=== PATIENT | female | born 1930 | race Caucasian/White ===

== ENCOUNTER 2018-11-09 23:59 | Inpatient (IN) | payer MEDICARE, BC ==
[~2018-11-09] VITALS: Ht 165.1 cm; Wt 54.4 kg
[2018-11-10] VITALS (7 sets, daily range): BP systolic 118–146; BP diastolic 59–73
[2018-11-10] MEDS ORDERED: ASPIRIN EC81 M1 PO (00:16)
--- NOTE | 2018-11-10 00:55 | NUR ---
PT ASSISTED TO BEDSIDE COMMODE. PT DAUGHTER AT BEDSIDE.
--- NOTE | 2018-11-10 01:05 | NUR ---
PT ARRIVED FROM ER VIA STRETCHER ACCOMPANIED BY STAFF AND DAUGHTER. PT TAKEN TO ROOM 1210. SHE REFUSED TO TRANSFER TO BED, STATING SHE WAS GOING HOME. HER DAUGHTER INFORMED HER SHE HAD TO STAY UNTIL THE HEART DR SEEN HER TOMORROW. PT TRANSFERRED WITH SHEET LIFT AND MAX ASSIST SHE KEPT GRABBING ONTO THE RAILS OF THE STRETCHER. PT THEN ATTEMPTED MULTIPLE TIMES TO GET OUT OF BED, STICKING HER FEET THROUGH THE SIDE RAILS. SHE WAS YELLING AT HER DAUGHTER TO TAKE HER HOME, AND WHY ARE YOU DOING THIS TO ME, AND VARIOUS OTHER INSULTS. HER DAUGHTER SAID SHE HAD TO GO HOME TO CHECK ON HER KIDS. I TOLD HER TO GO AHEAD AND LEAVE. PT THEN STOPPED SCREAMING MUCH, BUT CONTINUED TO TRY TO GET OUT OF BED, PULLING OFF TELEMETRY. PULLING AT HER IV, ETC.
--- NOTE | 2018-11-10 01:40 | NUR ---
DR CONTRERAS CALLED WITH PTS CONDITION AT THIS TIME. NEW ORDER NOTED FOR CHRISTINA. AWAITING DELIVERY BY PERFORMANCE ENGINEER.
--- NOTE | 2018-11-10 02:31 | NUR ---
PT LYING IN BED AWAKE LOOKING AROUND HER ROOM. SHE IS NO LONGER ATTEMPTING TO GET OUT OF BED, OR YELLING.
--- NOTE | 2018-11-10 03:43 | NUR ---
PT ASSISTED TO THE BATHROOM. SHE AMBULATED WITH MAX ASSIST. TOILETED WITH SBA. SHE PULLED HER TELEMETRY UNIT OFF WHILE ON THE TOILET, AND REFUSED TO LET IT BE PLACED BACK ON. PT ASSISTED BACK TO BED AFTERWARDS.
--- NOTE | 2018-11-10 06:11 | NUR ---
PT RESTING IN BED WITH EYES OPEN. SHE STATED: " I THOUGHT YOU GUYS WERE KIDDING ABOUT A SHOT LAST NIGHT, BUT I THINK YOU SLIPPED UP ON ME AND GAVE ME ONE." PT DENIES NEEDS AT THIS TIME.
--- NOTE | 2018-11-10 08:00 | NUR ---
AWAKE AND ALERT.ORIENTED TO SELF. ATTEMPTS TO REORIENT WITHOUT SUCCESS. STATED I HAVE TO GO AND TAKE CARE OF BUSSINESS. PERSUADED TO STAY FOR AWHILE. LUNGS ARE CLEAR BILATERALLY, NO COUGH NOTED. SKIN IS INTACT WITHOUT REDNESS EXCEPT STAGE 2 TO RIGHT BUTTOCK AND BRUISING NOTED TO LEFT SHOULDER. SL TO LEFT WRIST AND LEFT AC PATENT WITHOUT REDNESS AT INSERTION SITE. BREAKFAST SERVED IN ROOM. ASSIST WITH MEAL PER STAFF. ATE ONLY HER EGGS.
[2018-11-10 08:15] LABS: HEMATOCRIT 45.4 % (36.0-48.0); MCH 29.7 pg (26.0-34.0); MCHC 35.2 g/dL (31.0-37.0); MCV 84.2 fL (80.0-100.0); MEAN PLATELET VOLUME 9.5 fL (7.4-10.4); PLATELET COUNT 409 10x3/uL (130-400); RBC 5.39 10x6/uL (4.00-5.40); RDW 14.2 % (11.5-14.5); WBC 9.1 10x3/uL (4.8-10.8)
[2018-11-10 08:25] LABS: ALBUMIN 2.8 g/dL (3.4-5.0); ALKALINE PHOSPHATASE 122 U/L (46-116); ALT (SGPT) 22 U/L (10-68); CALC OSMOLALITY 283 mosm/kg (275-300); CARBON DIOXIDE 26.6 mmol/L (21.0-32.0); CHLORIDE - SERUM 101 mmol/L (98-107); CREATININE - SERUM 0.6 mg/dL (0.6-1.3); GLUCOSE 77 mg/dL (74-106); MAGNESIUM - SERUM 1.9 mg/dL (1.8-2.4); POTASSIUM - SERUM 3.3 mmol/L (3.5-5.1); PROTEIN - SERUM 6.3 g/dL (6.4-8.2); SODIUM 140 mmol/L (136-145); UREA NITROGEN 28 mg/dL (7-18); eGFR NON AFRICAN AMERICAN > 90 mL/min (90-120)
[2018-11-10 08:39] LABS: APTT 30.6 SECONDS (22.8-39.4)
[2018-11-10 08:43] LABS: INR 1.19 (0.85-1.17); PROTIME 14.5 SECONDS (11.6-15.0)
[2018-11-10 08:53] LABS: CKMB 3.4 U/L (0.0-3.6); CREATINE KINASE 133 UL (21-215)
--- NOTE | 2018-11-10 10:00 | NUR ---
PERSUADED TO ALLOW TELEMETRY TO BE PLACED. DENIES NEEDS AT THIS TIME. BED ALARM IS ON AND WORKING.
--- NOTE | 2018-11-10 10:43 | NUR ---
LATE ENTRY PATIENT CONFUSED AND REFUSED TO KEEP ON SCDS AT THIS TIME
--- NOTE | 2018-11-10 14:23 | MORECARE ---
CASE MANAGEMENT DISCHARGE SUMMARY PATIENT: RAHEEL MELENDEZ UNIT: [id number] ADM DATE: 11/10/18 AGE: 88 : 32 SEX: F ROOM/BED: D.1210 AUTHOR: JOSÉ SANABRIA PHYSICIAN: REFERRING PHYSICIAN: MICHOACANO CONTRERAS MD DATE OF SERVICE: 11/10/18 Discharge Plan Patient Name: RAHEEL MELENDEZ Facility: [facility]:[place] : 1930 Planned Disposition: Anticipated Discharge Date: Discharge Date: Expected LOS: Initial Reviewer: [email or web address] Initial Review Date: 11/10/2018 Generated: 11/10/18 3:22 pm Comments DCP- Discharge Planning Updated by [email or web address]: Silva Cole on 11/10/18 1:[address] Patient Name: RAHEEL MELENDEZ Admission Status: ER Accout number: [id number] Admission Date: 11-10-2018 : 1930 Admission Diagnosis: Attending: MICHOACANO CONTRERAS Current LOS: 1 Anticipated DC Date: Planned Disposition: Primary Insurance: MEDICARE A & B Discharge Planning Comments: CM ATTEMPTED TO MEET WITH PATIENT, SHE HAS DEMENTIA AND IS UNABLE TO ANSWER QUESTIONS APPROPRIATLEY. FAMILY WILL BE BACK LATER TODAY OR TOMORROW AND CM WILL MEET WITH THEM THEN. CM WILL FOLLOW AND ASSIST NEEDED WITH DC PLANNING/NEEDS. Student Outreach Coordinator: Silva Cole Patient Name: RAHEEL MELENDEZ Page [phone] at 1423 All edits/amendments must be made on the electronic document DICTATION DATE: 11/10/18 142 C ARCHITECT: SALMA 11/10/18 1422 RPT#: [id number] DC DATE: STATUS: ADM IN [facility] [address] [place] [address] END OF REPORT
[2018-11-10 14:51] LABS: CKMB 2.3 U/L (0.0-3.6); CREATINE KINASE 103 UL (21-215)
[2018-11-10 14:55] LABS: TROPONIN-I 0.244 ng/mL (0.000-0.060)
--- NOTE | 2018-11-10 15:49 | NUR ---
Noted stage 2 pressure injury on right buttocks measuring 1cm x 3cm. Recommendations: -calmoseptine cream -turn/reposition q 2 hours Wound care will continue monitoring.
--- NOTE | 2018-11-10 15:50 | NUR ---
REPOSITIONED IN BED FOR SAFETY. SCREAMED DURING THE PROCESS. CALM ONCE COMPLETED. DENIES NEEDS.
[2018-11-10 18:32] LABS: APPEARANCE CLEAR (CLEAR); BILIRUBIN NEGATIVE (NEGATIVE); COLOR YELLOW (YELLOW); GLUCOSE NEGATIVE (NEGATIVE); KETONE NEGATIVE (NEGATIVE); NITRITE POSITIVE (NEGATIVE); PROTEIN TRACE mg/dL (NEGATIVE); UROBILINOGEN NORMAL (NORMAL)
[2018-11-10 18:33] LABS: BACTERIA MANY /hpf (NONE SEEN); EPITHELIAL CELLS 0-5 /hpf (0-5); RED CELLS - URINE 0-5 /hpf (0-5)
[2018-11-10 20:50] LABS: CKMB 2.2 U/L (0.0-3.6); CREATINE KINASE 103 UL (21-215)
[2018-11-10 21:44] LABS: TROPONIN-I 0.216 ng/mL (0.000-0.060)
[2018-11-11] VITALS: BP 166/71
--- NOTE | 2018-11-11 02:36 | NUR ---
ASSISTED PT TO BATHROOM AND BACK TO BED.
[2018-11-11 08:03] LABS: CHOL - HDL RATIO 3.8 ratio (2.3-4.1); LDL-HDL RATIO 2.5 ratio (1.5-3.5)
--- NOTE | 2018-11-11 08:55 | NUR ---
CALLED PHARMACY AND SPOKE WITH LIONEL, INFORMED HER THAT I NEED LEVAQUIN FOR PT.
[2018-11-11 09:01] VITALS: BP 171/92
[2018-11-11 09:18] VITALS: Ht 165.1 cm; Wt 54.4 kg
--- NOTE | 2018-11-11 10:40 | NUR ---
PT VERY COMBATIVE, KEEPS TRYING TO GET OUT OF BED. PT VERY CONFUSED, SEEING ANIMALS AND PEOPLE IN HER ROOM. GEODONE GIVEN, AND PT SEEMS TO BE MORE CONFUSED NOW. PT WANTS TO SIT UP TO CHAIR, RETAIL SHIFT LEADER AND FAMILY AT BEDSIDE. NAD NOTED, WILL CONTINUE TO MONITOR.
--- NOTE | 2018-11-11 11:19 | EC ---
PATIENT:RAHEEL MELENDEZ DATE OF SERVICE: 11/10/18 SEX: F MEDICAL RECORD: [id number] DATE OF : 34 LOCATION:D.M3 D.121 AGE OF PATIENT: 88 ADMISSION DATE: 11/10/18 REFERRING PHYSICIAN: INTERPRETING PHYSICIAN: CAREY OWEN MD ECHOCARDIOGRAM REPORT ECHO CHARGES Date: CLINICAL DIAGNOSIS: ECHOCARDIOGRAPHIC MEASUREMENTS (adult normal given) AC root (d.<3.7cm) cm LV Septum d (<1.2 cm> cm Valve Excursion cm LV Septum (systole) cm Left Atria (s.<4.0cm> cm LVPW d(<1.2cm) cm RV (d.<2.3cm) cm LVPW (sytole) cm LV diastole(<5.6CM) cm MV E-F(>70mm/sec) cm LV systole cm LVOT Diameter cm MV exc.(>10mm) cm Est.ejection fraction (50-75%) % DOPPLER: LVIT cm/sec A cm/sec E cm/sec LA cm/sec RVSP mmHg LVOT cm/sec AOP1/2T m/s Asc. Ao cm/sec RVOT cm/sec RA cm/sec PA cm/sec AV Gradient Peak mmHg AV Mean mmHg AV Area cm MV Gradient Peak mmHg MV Mean mmHg MV Area cm COMMENTS: Tap Dancer: Associate Pastor: HUGH# Pericardial Effusion DATE OF SERVICE: 11/10/2018 ECHOCARDIOGRAM DATE OF SERVICE: 11/10/2018 FINDINGS: 1. Left ventricular chamber size is within normal limits. Left ventricular systolic function is normal. Overall ejection fraction is estimated at 60%. 2. Left atrium, right atrium, and right ventricle chamber sizes are within ECHOCARDIOGRAM REPORT [id number] RAHEEL MELENDEZ normal limits. 3. Valvular structures have normal structure and motion. 4. Doppler interrogation reveals mild aortic insufficiency, mild mitral regurgitation, no other valvular insufficiency or stenosis. Pulmonary systolic pressure is normal, estimated at 21 mmHg. 5. No evidence of pericardial effusion or left ventricular thrombus. TRANSINT:[id number] Voice Confirmation ID: [id number] DOCUMENT ID: [id number] CAREY OWEN MD at 1119 CC: [id number] DICTATION DATE: 11/10/18 1601 FOOD AND DRUG INSPECTOR: 11/10/18 1704 ADM IN [facility] [address] [place] [address]
[2018-11-11 12:08] VITALS: BP 158/97
--- NOTE | 2018-11-11 14:43 | MORECARE ---
CASE MANAGEMENT DISCHARGE SUMMARY PATIENT: RAHEEL MELENDEZ UNIT: [id number] ADM DATE: 11/10/18 AGE: 88 : 32 SEX: F ROOM/BED: D.1210 AUTHOR: ELLYDOC PHYSICIAN: REFERRING PHYSICIAN: MICHOACANO CONTRERAS MD DATE OF SERVICE: 11/11/18 Discharge Plan Patient Name: RAHEEL MELENDEZ Facility: [facility]:[place] : 1930 Planned Disposition: Home Anticipated Discharge Date: Discharge Date: Expected LOS: Initial Reviewer: [email or web address] Initial Review Date: 11/11/2018 Generated: 11/11/18 3:43 pm DCP- Discharge Planning Updated by [email or web address]: Silva Cole on 11/10/18 1:[address] Patient Name: RAHEEL MELENDEZ Admission Status: ER Accout number: [id number] Admission Date: 11-10-2018 : 1930 Admission Diagnosis: Attending: MICHOACANO CONTRERAS Current LOS: 1 Anticipated DC Date: Planned Disposition: Primary Insurance: MEDICARE A & B Discharge Planning Comments: CM ATTEMPTED TO MEET WITH PATIENT, SHE HAS DEMENTIA AND IS UNABLE TO ANSWER QUESTIONS APPROPRIATLEY. FAMILY WILL BE BACK LATER TODAY OR TOMORROW AND CM WILL MEET WITH THEM THEN. CM WILL FOLLOW AND ASSIST NEEDED WITH DC PLANNING/NEEDS. Licensed Clinical Psychologist: Silva Cole DCPIA - Discharge Planning Initial Assessment Updated by [id number]: Erin Patel on 11/11/18 2:40 pm * Is the patient Alert and Oriented? No * How many steps to enter\exit or inside your home? * PCP none * Pharmacy [facility] in [place] * Preadmission Environment Home with Family * ADLs Total Dependent * Equipment None * List name and contact numbers for known caregivers / representatives who currently or will assist patient after discharge: Sariah Lagunas, daughter, * Verbal permission to speak to the caregivers and representatives has been obtained from the patient. N/A * Community resources currently utilized None * Additional services required to return to the preadmission environment? Yes * Can the patient safely return to the preadmission environment? No * Has this patient been hospitalized within the prior 30 days at any hospital? No Last DP export: 11/10/18 1:22 p Patient Name: RAHEEL MELENDEZ Page [phone] at 1443 All edits/amendments must be made on the electronic document DICTATION DATE: 11/11/181441 [employer] DRIVER: SALMA 11/11/181441 RPT#: [id number] DC DATE: STATUS: ADM IN [facility] [address] [place] [address] END OF REPORT
--- NOTE | 2018-11-11 14:51 | MORECARE ---
CASE MANAGEMENT DISCHARGE SUMMARY PATIENT: SYDNEY NAVARRO UNIT: [id number] ADM DATE: 11/10/18 AGE: 88 : 32 SEX: F ROOM/BED: D.1210 AUTHOR: ELLYDOC PHYSICIAN: REFERRING PHYSICIAN: MICHOACANO CONTRERAS MD DATE OF SERVICE: 11/11/18 Discharge Plan Patient Name: SYDNEY NAVARRO Facility: [facility]:[place] : 1930 Planned Disposition: Home Anticipated Discharge Date: Discharge Date: Expected LOS: Initial Reviewer: [email or web address] Initial Review Date: 11/11/2018 Generated: 11/11/18 3:50 pm Comments DCP- Discharge Planning Updated by [id number]: Erin Patel on 11/11/18 1:[address] Late entry for 11/11/18 12:18 Patient Name: SYDNEY NAVARRO Admission Status: ER Accout number: [id number] Admission Date: 11-10-2018 : 1930 Admission Diagnosis: Attending: MICHOACANO CONTRERAS Current LOS: 1 Anticipated DC Date: Planned Disposition: Home Primary Insurance: MEDICARE A & B Discharge Planning Comments: Patient confused to place and time. Talks about seeing dogs running around the room. Patient's daughter and other family members present. Daughter, Sariah Lagunas ([phone]), states prior to hospitalization patient was living at home in [facility]. States she hasn't seen her mother in a couple months. States patient's niece, Sydney Navarro, would take her to appointments, grocery store, etc. Daughter lives in [place] and plans to take patient home with her. Daughter voices understanding that mother will require 24 hour caregiver and can not be left alone. CM attempted to reach niece, Sydney Navarro, to verify patient's "normal" state prior to hospitalization but was unable to reach by phone. Daughter states her home environment is safe and denies any concerns about taking patient home with her. CM explained and served DC IMM to daughter. CM will continue to follow and assist as needed with discharge planning / needs. Automobile Mechanic: Erin Patel DCP- Discharge Planning Updated by [email or web address]: Silva Cole on 11/10/18 1:[address] Patient Name: SYDNEY NAVARRO Admission Status: ER Accout number: [id number] Admission Date: 11-10-2018 : 1930 Admission Diagnosis: Attending: MICHOACANO CONTRERAS Current LOS: 1 Anticipated DC Date: Planned Disposition: Primary Insurance: MEDICARE A & B Discharge Planning Comments: CM ATTEMPTED TO MEET WITH PATIENT, SHE HAS DEMENTIA AND IS UNABLE TO ANSWER QUESTIONS APPROPRIATLEY. FAMILY WILL BE BACK LATER TODAY OR TOMORROW AND CM WILL MEET WITH THEM THEN. CM WILL FOLLOW AND ASSIST NEEDED WITH DC PLANNING/NEEDS. Automobile Mechanic: Silva Cole DCPIA - Discharge Planning Initial Assessment Updated by [email or web address]: Erin Patel on 11/11/18 2:40 pm * Is the patient Alert and Oriented? No * How many steps to enter\\exit or inside your home? * PCP none * Pharmacy [facility] in [place] * Preadmission Environment Home with Family * ADLs Total Dependent * Equipment None * List name and contact numbers for known caregivers / representatives who currently or will assist patient after discharge: Sariah Lagunas, daughter, * Verbal permission to speak to the caregivers and representatives has been obtained from the patient. N/A * Community resources currently utilized None * Additional services required to return to the preadmission environment? Yes * Can the patient safely return to the preadmission environment? No * Has this patient been hospitalized within the prior 30 days at any hospital? No Last DP export: 11/11/18 1:43 p Patient Name: SYDNEY NAVARRO Page [phone] at 1451 All edits/amendments must be made on the electronic document DICTATION DATE: 11/11/18 145 BANK WORKER: SALMA 11/11/18 1450 RPT#: [id number] DC DATE: STATUS: ADM IN [facility] [address] [place] [address] END OF REPORT
[2018-11-11 15:26] VITALS: BP 160/84
--- NOTE | 2018-11-11 19:10 | NUR ---
AWAKE STAIRING AT CEILING EYES NEVER MADE CONTACT WITH ME [id number] 2 OF 10 QUESTIONS NO ANSWER FOR 8...LCTA BED LOW AND CALL IGHT IN PLACE SR X2 AND TONJA ALARM FUNCTIONING. SL TO RT FA WITH NO EDEMA NO REDNESS TELEMETRY REAPPLIED.
[2018-11-11 20:31] VITALS: BP 146/78
[2018-11-12] VITALS: BP 179/83
[2018-11-12 05:42] VITALS: BP 170/86
--- NOTE | 2018-11-12 08:00 | NUR ---
AM MEDS GIVEN AT THIS TIME. PT HAD NO TROUBLE SWALLOWING PILLS. PT TRYING TO GET OUT OF BED, PROVIDED INCONT CARE AND REPOSITIONED PT IN BED WITH HOUSING INSPECTORS'S HELP. TONJA ALARM ON BEDSIDE RAILS X2, CALL LIGHT IN REACH, NAD NOTED, WILL CONTINUE TO MONITOR.
[2018-11-12 08:23] LABS: CALC OSMOLALITY 288 mosm/kg (275-300); CALCIUM 9.1 mg/dL (8.5-10.1); CARBON DIOXIDE 30.6 mmol/L (21.0-32.0); CHLORIDE - SERUM 104 mmol/L (98-107); CREATININE - SERUM 0.5 mg/dL (0.6-1.3); GLUCOSE 74 mg/dL (74-106); SODIUM 145 mmol/L (136-145); UREA NITROGEN 16 mg/dL (7-18); eGFR NON AFRICAN AMERICAN > 90 mL/min (90-120)
[2018-11-12 08:27] LABS: BASOPHILS 0.3 % (0-2); EOSINOPHILS 1.2 % (0-7); HEMATOCRIT 43.8 % (36.0-48.0); HEMOGLOBIN 14.8 g/dL (12-16); IMMATURE GRANULOCYTES 0.4 % (0-5); LYMPHOCYTES 9.3 % (15-50); MCH 28.7 pg (26.0-34.0); MCHC 33.8 g/dL (31.0-37.0); MEAN PLATELET VOLUME 9.2 fL (7.4-10.4); MONOCYTES 12.1 % (2-11); NEUTROPHILS 76.7 % (40-80); PLATELET COUNT 500 10x3/uL (130-400); RBC 5.15 10x6/uL (4.00-5.40); RDW 14.3 % (11.5-14.5); WBC 7.4 10x3/uL (4.8-10.8)
[2018-11-12 08:29] LABS: POTASSIUM - SERUM 2.7 mmol/L (3.5-5.1)
[2018-11-12 09:21] VITALS: BP 162/76
--- NOTE | 2018-11-12 11:44 | NUR ---
NOTIFIED FATOUMATA BORJA THAT PT WILL NOT KEEP HEART MONITOR ON, NEW ORDER TO D/C TELEMETRY.
[2018-11-12 13:59] VITALS: BP 185/99
[2018-11-12 17:03] VITALS: BP 175/85
--- NOTE | 2018-11-12 19:05 | NUR ---
VERY CONFUSED AT THIS TIME STARING AT THE CEILING AND WILL NOT ANSEWR QUESTIONS. BED IS LOW AND CALL LIGHT IS IN FLOOR I PLACE BACK WITHIN REACH. SKIN WARM AND DRY LCTA STA2 TO BTTOCK NOT OBSERVED RT FA SL IS INTACT
[2018-11-12 22:26] VITALS: BP 149/54
[2018-11-13 02:32] VITALS: BP 170/89
--- NOTE | 2018-11-13 03:37 | NUR ---
I AGREE WITH [employer] POLICE OFFICER ASSESSMENT.
[2018-11-13 05:42] VITALS: BP 196/88
--- NOTE | 2018-11-13 07:28 | NUR ---
The patient is screaming and yelling "Help" She says "Call the police." She is speaking to staff telling them they are in trouble. She is delirious and anxious, the other patients are getting upset because she is so loud. Leidy Mcmillan APN, she prescribed ativan 0.5 mg IV q8hprn.
--- NOTE | 2018-11-13 07:30 | NUR ---
The patient is restless, she is confused, screaming asking for the police.
--- NOTE | 2018-11-13 08:00 | NUR ---
The patient continues to scream and yell and try to get out of the bed. She scoots herself all the way to the lower part of the bed.
[2018-11-13 10:11] VITALS: BP 195/90
--- NOTE | 2018-11-13 10:40 | NUR ---
Joanne PHILLIP did get an order for geodon 10 mg IM now and a lamar, and a lamar bed.
--- NOTE | 2018-11-13 10:50 | NUR ---
Did call Barbra and get a request for a lamar bed. She said it is a special order and may take 2 hours.
--- NOTE | 2018-11-13 11:15 | NUR ---
Geodon 10 MG given in the left hip, patient tolerated well.
--- NOTE | 2018-11-13 13:39 | NUR ---
Nutrition Follow Up: Per chart review and nursing pt is very confused at this time. Interview deferred. Diet: Regular; Ensure BID PO Intake: 17% meal avg No BM since admit Wt stable Meds and labs reviewed Rec continue current diet, supplement regimen. Rec consider an appetite stimulant. RD following.
[2018-11-13 14:35] VITALS: BP 155/32
--- NOTE | 2018-11-13 15:00 | NUR ---
The lamar bed came and patient is transferred from her hospital bed to the [facility]insworth bed. The patient tolereated well.
--- NOTE | 2018-11-13 16:14 | NUR ---
Called report to med surg nurse, will take patient up momentarily.
[2018-11-13 16:56] LABS: CALCIUM 9.9 mg/dL (8.5-10.1); CARBON DIOXIDE 30.2 mmol/L (21.0-32.0); CHLORIDE - SERUM 108 mmol/L (98-107); CREATININE - SERUM 0.6 mg/dL (0.6-1.3); GLUCOSE 86 mg/dL (74-106); SODIUM 145 mmol/L (136-145); eGFR NON AFRICAN AMERICAN > 90 mL/min (90-120)
[2018-11-13 17:04] LABS: CALC OSMOLALITY 290 mosm/kg (275-300); UREA NITROGEN 21 mg/dL (7-18)
[2018-11-13 17:05] LABS: POTASSIUM - SERUM 6.3 mmol/L (3.5-5.1)
--- NOTE | 2018-11-13 17:05 | NUR ---
Patient d/c'd off of the floor. Alee taking her to room 2224. Alyson will be receiving nurse.
--- NOTE | 2018-11-13 17:11 | NUR ---
Called potassium to med surg nurse. It is critical 6.3.
--- NOTE | 2018-11-13 17:28 | NUR ---
SPOKE WITH ZENY. K REPORTED TO BE 6.3. DR CONTRERAS WANTS A REDRAW.
--- NOTE | 2018-11-13 17:38 | NUR ---
PT TRANSPORTED TO ROOM VIA TONJA BED. PT IS ALERT BUT IS DISORIENTED TO PLACE TIME AND SITUATION. PT IS ABLE TO STATE NAME. PT DOES NOT ANSWER MOST QUESTIONS APPROPRIATELY BUT IS ABLE TO STATE NAME WHEN ASKED. BRUISING IS GENERALIZED OVER PT BODY MOSTLY IN BILATERAL UPPER EXTREMITIES. PT WITH SKIN TEAR TO LEFT BUTTOCK AND REDDENED AREA TO COCCYX. PT IS MISSING TEETH. PEDAL PULSES ARE PALPABLE BUT FEET ARE COLD TO TOUCH AND CAP REFILL IS >3 SECONDS. PT DENIES PRESENCE OF NUMBNESS/TINGLING. TONJA BED IS SECURED. BED IS IN THE LOWEST POSITION. WILL NOTIFY JORGE PHILLIP OF PT ARRIVAL AND FINDINGS.
--- NOTE | 2018-11-13 17:58 | NUR ---
DR CONTRERAS IS AWARE OF PT ARRIVAL TO FLOOR AND CAP REFILL OF BILATERAL LOWER EXTREMITIES BEING >3 SECONDS.
--- NOTE | 2018-11-13 18:00 | NUR ---
K REDRAW WAS 4.4. NO FURTHER NEEDS AT THIS TIME
--- NOTE | 2018-11-13 19:00 | NUR ---
BEDSIDE REPORT RECEIVED AND CARE OF PT ASSUMED. PT LYING IN SUPINE POSITION IN TONJA ENCLOSURE BED. IV IN RIGHT FA SALINE LOCKED.. DAUGHTER IS AT BEDSIDE.
--- NOTE | 2018-11-13 19:01 | NUR ---
DAUGHTER IN THE ROOM. WANTS TO KNOW IF WE HAVE TREATED FOR THE UTI. TOLD HER I WILL HAVE TO FIND OUT.
--- NOTE | 2018-11-13 20:56 | NUR ---
HS MEDICATIONS GIVEN...IM GEODON TO LEFT VENTROGLUTEAL WITH 2 PERSON ASSISTING.
[2018-11-13 21:47] VITALS: BP 142/78
--- NOTE | 2018-11-14 05:00 | NUR ---
PT HAD LARGE INCONTINENT BM. CLEANED AND ALL LINEN AND GOWN CHANGED. POSITIONED FOR COMFORT.
--- NOTE | 2018-11-14 05:29 | NUR ---
PT MORE ALERT THIS MORNING AND ASKING QUESTIONS...WHERE IS SHE? WHAT HAPPENED? NOT CONFUSED AND ORIENTED TO SELF AND CIRCUMSTANSES. WILL CONTINUE TO MONITOR FOR NEEDS.
[2018-11-14 08:00] VITALS: BP 140/72
[2018-11-14 08:57] LABS: BASOPHILS 0.2 % (0-2); EOSINOPHILS 0.9 % (0-7); HEMATOCRIT 44.7 % (36.0-48.0); HEMOGLOBIN 14.9 g/dL (12-16); IMMATURE GRANULOCYTES 0.3 % (0-5); LYMPHOCYTES 8.9 % (15-50); MCH 29.2 pg (26.0-34.0); MCHC 33.3 g/dL (31.0-37.0); MCV 87.5 fL (80.0-100.0); MEAN PLATELET VOLUME 9.2 fL (7.4-10.4); MONOCYTES 9.3 % (2-11); NEUTROPHILS 80.4 % (40-80); PLATELET COUNT 577 10x3/uL (130-400); RBC 5.11 10x6/uL (4.00-5.40); RDW 14.7 % (11.5-14.5); WBC 9.5 10x3/uL (4.8-10.8)
[2018-11-14 09:01] LABS: CALC OSMOLALITY 290 mosm/kg (275-300); CALCIUM 9.5 mg/dL (8.5-10.1); CARBON DIOXIDE 27.8 mmol/L (21.0-32.0); CHLORIDE - SERUM 108 mmol/L (98-107); CREATININE - SERUM 0.5 mg/dL (0.6-1.3); GLUCOSE 71 mg/dL (74-106); POTASSIUM - SERUM 4.5 mmol/L (3.5-5.1); SODIUM 145 mmol/L (136-145); UREA NITROGEN 25 mg/dL (7-18); eGFR NON AFRICAN AMERICAN > 90 mL/min (90-120)
[2018-11-14 11:54] VITALS: BP 92/74
--- NOTE | 2018-11-14 14:13 | MORECARE ---
CASE MANAGEMENT DISCHARGE SUMMARY PATIENT: SYDNEY NAVARRO UNIT: [id number] ADM DATE: 11/10/18 AGE: 88 : 32 SEX: F ROOM/BED: D.2224 AUTHOR: ELLYDOC PHYSICIAN: REFERRING PHYSICIAN: MICHOACANO CONTRERAS MD DATE OF SERVICE: 11/14/18 Discharge Plan Patient Name: SYDNEY NAVARRO Facility: [facility]:[place] : 1930 Planned Disposition: Home Anticipated Discharge Date: Discharge Date: Expected LOS: Initial Reviewer: [email or web address] Initial Review Date: 11/11/2018 Generated: 11/14/18 3:12 pm Comments DCP- Discharge Planning Updated by [id number]: Rosana Reece on 11/14/18 1:[address] Met with daughter per her request to discuss discharge planning/needs. Sariah Loomis (daughter), states she will be unable to care for her mother in the condition she is currently in. She would like a referral to [place] for skilled therapy. She has brought her certificate to prove she is the patient's daughter as requested. I called Danae Birchford (niece) that is on her face sheet and verified with her that Sariah should be her NOK and person to notify and she said yes. I called Cinthia at [facility] and clinical faxed. CM will continue to follow and assist with discharge planning/needs. DCP- Discharge Planning Updated by [id number]: Erin Patel on 11/11/18 1:[address] Late entry for 11/11/18 12:18 Patient Name: SYDNEY NAVARRO Admission Status: ER Accout number: [id number] Admission Date: 11-10-2018 : 1930 Admission Diagnosis: Attending: MICHOACANO CONTRERAS Current LOS: 1 Anticipated DC Date: Planned Disposition: Home Primary Insurance: MEDICARE A & B Discharge Planning Comments: Patient confused to place and time. Talks about seeing dogs running around the room. Patient's daughter and other family members present. Daughter, Sariah Lagunas ([phone]), states prior to hospitalization patient was living at home in [facility]. States she hasn't seen her mother in a couple months. States patient's niece, Sydney Nvaarro, would take her to appointments, grocery store, etc. Daughter lives in [place] and plans to take patient home with her. Daughter voices understanding that mother will require 24 hour caregiver and can not be left alone. CM attempted to reach niece, Sydney Navarro, to verify patient's "normal" state prior to hospitalization but was unable to reach by phone. Daughter states her home environment is safe and denies any concerns about taking patient home with her. CM explained and served DC IMM to daughter. CM will continue to follow and assist as needed with discharge planning / needs. Electrical Test Technician: Erin Patel DCP- Discharge Planning Updated by [id number]: Silva Cole on 11/10/18 1:[address] Patient Name: SYDNEY NAVARRO Admission Status: ER Accout number: [id number] Admission Date: 11-10-2018 : 1930 Admission Diagnosis: Attending: MICHOACANO CONTRERAS Current LOS: 1 Anticipated DC Date: Planned Disposition: Primary Insurance: MEDICARE A & B Discharge Planning Comments: CM ATTEMPTED TO MEET WITH PATIENT, SHE HAS DEMENTIA AND IS UNABLE TO ANSWER QUESTIONS APPROPRIATLEY. FAMILY WILL BE BACK LATER TODAY OR TOMORROW AND CM WILL MEET WITH THEM THEN. CM WILL FOLLOW AND ASSIST NEEDED WITH DC PLANNING/NEEDS. Electrical Test Technician: Silva Cole DCPIA - Discharge Planning Initial Assessment Updated by [email or web address]: Erin Patel on 11/11/18 2:40 pm * Is the patient Alert and Oriented? No * How many steps to enter\\exit or inside your home? * PCP none * Pharmacy [facility] in [place] * Preadmission Environment Home with Family * ADLs Total Dependent * Equipment None * List name and contact numbers for known caregivers / representatives who currently or will assist patient after discharge: Sariah Lagunas, daughter, * Verbal permission to speak to the caregivers and representatives has been obtained from the patient. N/A * Community resources currently utilized None * Additional services required to return to the preadmission environment? Yes * Can the patient safely return to the preadmission environment? No * Has this patient been hospitalized within the prior 30 days at any hospital? No External Providers External Provider: [facility] Next Contact Date: Service Request Date: Service Type: Resolution: Reviewer: Comments: Coverage Notice Reviewer: [email or web address] Ruslan Patel Notice Issued Date-Time: 11/11/2018 12:18 Notice Type: IM Discharge Notice Notice Delivered To: Family Member Relationship to Patient: Daughter Closing Machine Operator Name: Delivery Method: HAND - Hand Delivered Maricruz Days: Prior Verbal Notification: Recipient Understood Notice: Yes Recipient Signature: Yes Med Rec Note Co-signed by Attending: Coverage Notice Comment: Last DP export: 11/11/18 1:50 p Patient Name: SYDNEY NAVARRO Page [phone] at 1413 All edits/amendments must be made on the electronic document DICTATION DATE: 11/14/181411 TURBINE MECHANIC: SALMA 11/14/181411 RPT#: [id number] DC DATE: STATUS: ADM IN [facility] [address] [place] [address] END OF REPORT
[2018-11-14 15:11] VITALS: BP 109/55
--- NOTE | 2018-11-14 15:20 | NUR ---
I have reviewed this patient and I concur with the Shift Assessment completed by the Licensed Practical Nurse today this shift.
--- NOTE | 2018-11-14 19:00 | NUR ---
REPORT RECEIVED AND CARE OF PT ASSUMED. PT LYING IN HIGH LEON'S POSITION VISITING WITH FAMILY MEMBERS. IV IN RIGHT FA PATENT WITH NS INFSUING AT 40 ML / HR. WILL MONITOR FOR NEEDS.
[2018-11-14 20:08] VITALS: BP 119/59
--- NOTE | 2018-11-14 20:15 | NUR ---
GAVE 240 ML OF JUICE...PT CONSUMED 100%.
--- NOTE | 2018-11-14 22:43 | NUR ---
IN AND OUT CATH PERFORMED ON INCONTINENT PT FOR SPECIMEN FOR UA. DELIVERED TO LAB.
[2018-11-14 23:11] LABS: APPEARANCE HAZY (CLEAR); BACTERIA NONE SEEN /hpf (NONE SEEN); BILIRUBIN NEGATIVE (NEGATIVE); COLOR DK YELLOW (YELLOW); EPITHELIAL CELLS NSEEN /hpf (0-5); GLUCOSE NEGATIVE (NEGATIVE); KETONE SMALL mg/dL (NEGATIVE); NITRITE NEGATIVE (NEGATIVE); PROTEIN 1+ mg/dL (NEGATIVE); SPECIFIC GRAVITY 1.015 (1.005-1.020); UROBILINOGEN NORMAL (NORMAL); WHITE CELLS - URINE NSEEN /hpf (0-5)
[2018-11-15 00:46] VITALS: BP 120/60
[2018-11-15 05:57] LABS: BASOPHILS 0.1 % (0-2); EOSINOPHILS 1.6 % (0-7); HEMATOCRIT 40.9 % (36.0-48.0); HEMOGLOBIN 13.5 g/dL (12-16); IMMATURE GRANULOCYTES 0.4 % (0-5); LYMPHOCYTES 11.5 % (15-50); MCV 87.8 fL (80.0-100.0); NEUTROPHILS 75.4 % (40-80); PLATELET COUNT 568 10x3/uL (130-400); RBC 4.66 10x6/uL (4.00-5.40); WBC 8.9 10x3/uL (4.8-10.8)
[2018-11-15 06:08] VITALS: BP 126/65
[2018-11-15 06:24] LABS: CARBON DIOXIDE 29.9 mmol/L (21.0-32.0); CHLORIDE - SERUM 105 mmol/L (98-107); GLUCOSE 83 mg/dL (74-106); POTASSIUM - SERUM 3.9 mmol/L (3.5-5.1); SODIUM 143 mmol/L (136-145); eGFR NON AFRICAN AMERICAN 84 mL/min (90-120)
[2018-11-15 06:26] LABS: CALC OSMOLALITY 291 mosm/kg (275-300); CREATININE - SERUM 0.7 mg/dL (0.6-1.3); UREA NITROGEN 35 mg/dL (7-18)
[2018-11-15 08:08] VITALS: BP 115/61
--- NOTE | 2018-11-15 08:10 | NUR ---
PT RESTING QUIETLY IN BED. NO ACUTE DISTRESS NOTED. REMAINS CONFUSED TO SITUATION AND REASON FOR HOSPITALIZATION. PROVIDED REORIENTATION. PLEASANT MOOD. IV TO RIGHT FOREARM WITH NS @ 40 ML/HR INFUSING VIA PUMP. SITE WITHOUT REDNESS OR EDEMA. DENIES PAIN AT THIS TIME. DENIES FURTHER NEEDS. CL WITHIN REACH. ENCOURAGED TO CALL WITH NEEDS. CONTINUE POC
--- NOTE | 2018-11-15 09:35 | NUR ---
PT ASSISTED TO CHAIR AT BEDSIDE PER PT. REQUIRES ASSIST WITH STANDING AND PIVOTING PT IS WEAK. CL WITHIN REACH. WILL CONTINUE TO MONITOR.
--- NOTE | 2018-11-15 11:15 | NUR ---
PT REMAINS UP IN CHAIR AT BEDSIDE. CO PAIN TO LOWER BACK, REQUESTING TYLENOL. ADMINISTERED TYLENOL PER MD ORDERS. CL WITHIN REACH. WILL CONTINUE TO MONITOR.
--- NOTE | 2018-11-15 13:12 | NUR ---
PT REMAINS UP IN CHAIR AT BEDSIDE EATING LUNCH. NO ACUTE DISTRESS NOTED. CL WITHIN REACH. WILL CONTINUE TO MONITOR.
[2018-11-15 16:31] VITALS: BP 115/55
--- NOTE | 2018-11-15 19:30 | NUR ---
RECEIVED REPORT, ASSUMED CARE, NO S/S OF DISTRESS NOTED, CALL LIGHT IN REACH, BED LOWEST POSITION, WILL CONTINUE POC
[2018-11-15 20:01] VITALS: BP 106/52
[2018-11-16 02:28] VITALS: BP 114/68
[2018-11-16 04:09] VITALS: BP 134/63
--- NOTE | 2018-11-16 04:46 | NUR ---
I have reviewed this patient and I concur with the Shift Assessment completed by the Licensed Practical Nurse today this shift.
[2018-11-16 05:40] LABS: BASOPHILS 0.1 % (0-2); EOSINOPHILS 1.8 % (0-7); HEMOGLOBIN 13.2 g/dL (12-16); IMMATURE GRANULOCYTES 0.5 % (0-5); LYMPHOCYTES 14.3 % (15-50); MCH 28.8 pg (26.0-34.0); MCV 87.3 fL (80.0-100.0); NEUTROPHILS 73.3 % (40-80); PLATELET COUNT 506 10x3/uL (130-400); RBC 4.58 10x6/uL (4.00-5.40); RDW 14.9 % (11.5-14.5); WBC 7.3 10x3/uL (4.8-10.8)
[2018-11-16 06:05] LABS: CALC OSMOLALITY 281 mosm/kg (275-300); CALCIUM 8.7 mg/dL (8.5-10.1); CHLORIDE - SERUM 106 mmol/L (98-107); CREATININE - SERUM 0.6 mg/dL (0.6-1.3); GLUCOSE 91 mg/dL (74-106); POTASSIUM - SERUM 3.7 mmol/L (3.5-5.1); SODIUM 137 mmol/L (136-145); UREA NITROGEN 35 mg/dL (7-18); eGFR NON AFRICAN AMERICAN > 90 mL/min (90-120)
--- NOTE | 2018-11-16 08:00 | NUR ---
PT AAOX4 RESP EVEN AND NONLABORED, NO SIGNS OF DISTRESS NOTED, WILL CONTINUE TO MONITOR CL IN REACH
[2018-11-16 08:32] VITALS: BP 126/66
[2018-11-16 12:48] VITALS: BP 106/61
[2018-11-16 17:16] VITALS: BP 114/53
--- NOTE | 2018-11-16 19:00 | NUR ---
BEDSIDE REPORT RECEIVED AND CARE OF PT ASSUMED. PT LYING IN HIGH LEON'S POSITION WATCHING TV. IV IN RIGHT FA PATENT WITH NS INFUSING AT 40 ML / HR. WILL MONITOR FOR NEEDS. BED ALARM IN USE FOR SAFETY.
--- NOTE | 2018-11-16 19:36 | NUR ---
I have reviewed this patient and I concur with the Shift Assessment completed by the Licensed Practical Nurse today this shift.
[2018-11-16 20:23] VITALS: BP 120/80
--- NOTE | 2018-11-16 21:15 | NUR ---
GAVE WATER AND APPLE / CRANBERRY JUICE FOR SNACK. WILL CONTINUE TO MONITOR FOR NEEDS.
[2018-11-17 00:18] VITALS: BP 113/54
--- NOTE | 2018-11-17 03:41 | NUR ---
PT RESTING IN HIGH LEON'S POSITION WITH EYES CLOSED AND EASY RESPIRATIONS. BED ALARM IN USE FOR SAFETY.
[2018-11-17 04:27] VITALS: BP 114/52
[2018-11-17 06:58] LABS: CALC OSMOLALITY 293 mosm/kg (275-300); CARBON DIOXIDE 31.5 mmol/L (21.0-32.0); CHLORIDE - SERUM 107 mmol/L (98-107); CREATININE - SERUM 0.6 mg/dL (0.6-1.3); GLUCOSE 94 mg/dL (74-106); POTASSIUM - SERUM 3.9 mmol/L (3.5-5.1); SODIUM 144 mmol/L (136-145); UREA NITROGEN 33 mg/dL (7-18); eGFR NON AFRICAN AMERICAN > 90 mL/min (90-120)
[2018-11-17 07:05] LABS: BASOPHILS 0.1 % (0-2); EOSINOPHILS 2.6 % (0-7); HEMATOCRIT 40.1 % (36.0-48.0); IMMATURE GRANULOCYTES 0.7 % (0-5); LYMPHOCYTES 14.1 % (15-50); MCH 28.6 pg (26.0-34.0); MCHC 32.4 g/dL (31.0-37.0); MCV 88.1 fL (80.0-100.0); MEAN PLATELET VOLUME 9.1 fL (7.4-10.4); MONOCYTES 10.2 % (2-11); NEUTROPHILS 72.3 % (40-80); PLATELET COUNT 509 10x3/uL (130-400); RBC 4.55 10x6/uL (4.00-5.40); RDW 15.1 % (11.5-14.5)
[2018-11-17 08:29] VITALS: BP 113/49
[2018-11-17] MEDS ORDERED: CALMOSEPTINE OI71 GM TOPICAL (12:25)
[2018-11-17] MEDS ORDERED: PROTONIX40 MG PO (12:25)
[2018-11-17 12:46] VITALS: BP 108/47
--- NOTE | 2018-11-17 13:18 | MORECARE ---
CASE MANAGEMENT DISCHARGE SUMMARY PATIENT: SYDNEY NAVARRO UNIT: [id number] ADM DATE: 11/10/18 AGE: 88 : 34 SEX: F ROOM/BED: D.2224 AUTHOR: ELLY,DOC PHYSICIAN: REFERRING PHYSICIAN: MICHOACANO CONTRERAS MD DATE OF SERVICE: 11/17/18 Discharge Plan Patient Name: SYDNEY NAVARRO Facility: [facility]:[place] : 1930 Planned Disposition: Home Anticipated Discharge Date: Discharge Date: Expected LOS: Initial Reviewer: [email or web address] Initial Review Date: 11/11/2018 Generated: 11/17/18 2:18 pm Comments DCP- Discharge Planning Updated by [email or web address]: Rosana Reece on 11/17/18 12:[address] Received acceptance for admission to [facility] to a skilled (Medicare) bed. I notified Tamia Haas APN. They will pick her up at 1400. I notified Drea (Primary nurse). I called patient's daughter, Sariah, and informed. Patient and daughter in agreement to discharge today. Going to [facility] skilled bed. DC clinical faxed. DCP- Discharge Planning Updated by [email or web address]: Rosana Reece on 11/14/18 1:[address] Met with daughter per her request to discuss discharge planning/needs. Sariah Loomis (daughter), states she will be unable to care for her mother in the condition she is currently in. She would like a referral to [facility] for skilled therapy. She has brought her certificate to prove she is the patient's daughter as requested. I called Danae Navarro (niece) that is on her face sheet and verified with her that Sariah should be her NOK and person to notify and she said yes. I called Cinthia at [facility] and clinical faxed. CM will continue to follow and assist with discharge planning/needs. DCP- Discharge Planning Updated by [email or web address]: Erin Patel on 11/11/18 1:[address] Late entry for 11/11/18 12:18 Patient Name: SYDNEY NAVARRO Admission Status: ER Accout number: [id number] Admission Date: 11-10-2018 : 1930 Admission Diagnosis: Attending: MICHOACANO CONTRERAS Current LOS: 1 Anticipated DC Date: Planned Disposition: Home Primary Insurance: MEDICARE A & B Discharge Planning Comments: Patient confused to place and time. Talks about seeing dogs running around the room. Patient's daughter and other family members present. Daughter, Sariah Lagunas ([phone]), states prior to hospitalization patient was living at home in [facility]. States she hasn't seen her mother in a couple months. States patient's niece, Sydney Navarro, would take her to appointments, grocery store, etc. Daughter lives in [place] and plans to take patient home with her. Daughter voices understanding that mother will require 24 hour caregiver and can not be left alone. CM attempted to reach niece, Sydney Navarro, to verify patient's "normal" state prior to hospitalization but was unable to reach by phone. Daughter states her home environment is safe and denies any concerns about taking patient home with her. CM explained and served DC IMM to daughter. CM will continue to follow and assist as needed with discharge planning / needs. Clinical Data Management Manager: Erin Patel DCP- Discharge Planning Updated by [email or web address]: Silva Cole on 11/10/18 1:[address] Patient Name: SYDNEY NAVARRO Admission Status: ER Accout number: [id number] Admission Date: 11-10-2018 : 1930 Admission Diagnosis: Attending: MICHOACANO CONTRERAS Current LOS: 1 Anticipated DC Date: Planned Disposition: Primary Insurance: MEDICARE A & B Discharge Planning Comments: CM ATTEMPTED TO MEET WITH PATIENT, SHE HAS DEMENTIA AND IS UNABLE TO ANSWER QUESTIONS APPROPRIATLEY. FAMILY WILL BE BACK LATER TODAY OR TOMORROW AND CM WILL MEET WITH THEM THEN. CM WILL FOLLOW AND ASSIST NEEDED WITH DC PLANNING/NEEDS. Clinical Data Management Manager: Silva Cole DCPIA - Discharge Planning Initial Assessment Updated by [email or web address]: Erin Patel on 11/11/18 2:40 pm * Is the patient Alert and Oriented? No * How many steps to enter\\exit or inside your home? * PCP none * Pharmacy [facility] in [place] * Preadmission Environment Home with Family * ADLs Total Dependent * Equipment None * List name and contact numbers for known caregivers / representatives who currently or will assist patient after discharge: Sariah Lagunas, daughter, * Verbal permission to speak to the caregivers and representatives has been obtained from the patient. N/A * Community resources currently utilized None * Additional services required to return to the preadmission environment? Yes * Can the patient safely return to the preadmission environment? No * Has this patient been hospitalized within the prior 30 days at any hospital? No Coverage Notice Reviewer: [email or web address] - Erin Patel Notice Issued Date-Time: 11/11/2018 12:18 Notice Type: IM Discharge Notice Notice Delivered To: Family Member Relationship to Patient: Daughter Cad Draftsman Name: Delivery Method: HAND - Hand Delivered Maricruz Days: Prior Verbal Notification: Recipient Understood Notice: Yes Recipient Signature: Yes Med Rec Note Co-signed by Attending: Coverage Notice Comment: Reviewer: [email or web address] - Rosana Reece Notice Issued Date-Time: 11/17/2018 13:08 Notice Type: IM Discharge Notice Notice Delivered To: Patient Relationship to Patient: Self Cad Draftsman Name: Delivery Method: - Maricruz Days: Prior Verbal Notification: Recipient Understood Notice: Recipient Signature: Med Rec Note Co-signed by Attending: Coverage Notice Comment: Last DP export: 11/14/18 1:12 pm Patient Name: SYDNEY NAVARRO Page [id number] at 1318 All edits/amendments must be made on the electronic document DICTATION DATE: 11/17/181316 DIAGNOSTIC CARDIAC SONOGRAPHER: SALMA 11/17/18 1317 RPT#: [id number] DC DATE: STATUS: ADM IN [facility] [address] [place] [address] END OF REPORT
--- NOTE | 2018-11-17 13:27 | NUR ---
REPORT CALLED TO GINGER GÓMEZ LPN AT [facility]. PER ROLO GUZMAN, TRANSPORT WILL DINING ROOM ATTENDANT [place] AT 1400.
--- NOTE | 2018-11-17 14:15 | NUR ---
DISCUSSED DISCHARGE INSTRUCTIONS WITH PATIENT AND DAUGHTER. IV REMOVED, TIP INTACT. [facility] TRANSPORT PICKED UP. PATIENT DISCHARGED TO [facility] VIA WHEELCHAIR BY TRANSPORT.
== END 2018-11-17 14:15 | DRG 311 ==
LOC: D.ER 23:59 → OBSVTIME 11-10 00:45 → D.M3 11-10 00:45 → D.MS 11-10 17:22 → D.M3 11-10 17:22 → D.MS 11-13 17:22
PROVIDERS: Internal Medicine Interventional Cardiology; ADMIT Internal Medicine Nephrology; ATTEND Internal Medicine Nephrology
DX: I24.8 Other forms of acute ischemic heart disease (principal); N39.0 Urinary tract infection, site not specified; F03.91 Unspecified dementia, unspecified severity, with behavioral disturbance; F05 Delirium due to known physiological condition; I10 Essential (primary) hypertension; F03.90 Unspecified dementia, unspecified severity, without behavioral disturbance, psychotic disturbance, mood disturbance, and anxiety; Z91.81 History of falling; I08.0 Rheumatic disorders of both mitral and aortic valves; B96.5 Pseudomonas (aeruginosa) (mallei) (pseudomallei) as the cause of diseases classified elsewhere; I20.0 Unstable angina; R40.2243 Coma scale, best verbal response, confused conversation, at hospital admission